=== PATIENT | male | born 1935 | race Caucasian/White ===

== ENCOUNTER → 2017-12-08 | Outpatient (CLI) | payer MEDICARE, BC ==
[2017-12-08 13:37] LABS: HEMATOCRIT 32.8 % (37.9-51.0); HEMOGLOBIN 11.1 g/dL (13.5-17.0); MEAN CORPUSCULAR HEMOGLOBIN 30.7 pg (27.0-33.4); MEAN CORPUSCULAR HGB CONC 33.8 g/dL (32.0-36.0); MEAN CORPUSCULAR VOLUME 91 fl (80-97); PLATELET COUNT 160 10^3/uL (150-450); RED BLOOD COUNT 3.61 10^6/uL (4.35-5.55); RED CELL DISTRIBUTION WIDTH 14.9 % (11.5-14.0)
[2017-12-08 13:59] LABS: ALANINE AMINOTRANSFERASE 73 U/L (21-72); ALBUMIN 3.5 g/dL (3.5-5.0); ALKALINE PHOSPHATASE 148 U/L (38-126); ANION GAP 11 (5-19); ASPARTATE AMINO TRANSFERASE 51 U/L (17-59); BILIRUBIN,DIRECT 0.3 mg/dL (0.0-0.4); BILIRUBIN,TOTAL 0.3 mg/dL (0.2-1.3); BLOOD UREA NITROGEN 37 mg/dL (7-20); CALCIUM 8.7 mg/dL (8.4-10.2); CARBON DIOXIDE 24 mmol/L (22-30); CHLORIDE 108 mmol/L (98-107); GLUCOSE 96 mg/dL (75-110); LIPASE 66.1 U/L (23-300); POTASSIUM 4.2 mmol/L (3.6-5.0); SODIUM 142.8 mmol/L (137-145); TOTAL PROTEIN 6.5 g/dL (6.3-8.2)
== END ==
LOC: OD 13:01
PROVIDERS: ATTEND Family Medicine
DX: I95.9 Hypotension, unspecified (principal); R11.0 Nausea
CPT/HCPCS: 36415; 80053; 83690; 85027

== ENCOUNTER 2018-10-24 10:48 | Emergency (ER) | payer MEDICARE, BC ==
--- NOTE | 2018-10-24 11:06 | ER Document Report ---
ED Medical Screen (RME) - General Chief Complaint: Rectal Bleeding Stated Complaint: RECTAL BLEEDING Time Seen by Provider: 10/24/18 11:04 Primary Care Provider: CRISTOFER MORELAND MD [Primary Care Provider] - Follow up as needed Notes: 83-year-old male patient with von Willebrand's disease, hepatocellular carcinoma. He does have biliary stents and the bleeding is occurring in that general region. He got his first infusion of Optiva recently. He self infuses another medication at home. His hemoglobin has been falling for the past 2 weeks. He needs a regular transfusions. He has also complained of nausea and vomiting. I have greeted and performed a rapid initial assessment of this patient. A comprehensive ED assessment and evaluation of the patient, analysis of test results and completion of the medical decision making process will be conducted by additional ED providers. TRAVEL OUTSIDE OF THE [place] IN LAST 30 DAYS: No - Related Data Allergies/Adverse Reactions: aspirin Allergy (Unknown, Verified 10/24/18 11:02) citric acid [From DDAVP] Allergy (Verified 10/24/18 11:02) desmopressin [From DDAVP] Allergy (Verified 10/24/18 11:02) levofloxacin [From Levaquin] Allergy (Verified 10/24/18 11:02) NSAIDS (Non-Steroidal Anti-Inflamma Allergy (Verified 10/24/18 11:02) penicillin G Allergy (Verified 10/24/18 11:02) sodium phosphate [From DDAVP] Allergy (Verified 10/24/18 11:02) Physical Exam - Vital signs Vitals: Temp Pulse Resp BP Pulse Ox 98.2 F 87 16 118/54 L 99 10/24/18 10:53 10/24/18 10:53 10/24/18 10:53 10/24/18 10:53 10/24/18 10:53 Course - Vital Signs Vital signs: Temp Pulse Resp BP Pulse Ox 98.2 F 87 16 118/54 L 99 10/24/18 10:53 10/24/18 10:53 10/24/18 10:53 10/24/18 10:53 10/24/18 10:53 Doctor's Discharge - Discharge Referrals: CRISTOFER MORELAND MD [Primary Care Provider] - Follow up as needed
[2018-10-24 12:04] LABS: ABSOLUTE BASOPHILS # (AUTO) 0.1 10^3/uL (0.0-0.2); ABSOLUTE EOSINOPHILS # (AUTO) 0.1 10^3/uL (0.0-0.6); ABSOLUTE LYMPHOCYTES (AUTO) 1.2 10^3/uL (0.5-4.7); ABSOLUTE MONOCYTES (AUTO) 1.1 10^3/uL (0.1-1.4); ABSOLUTE NEUT (AUTO) 7.3 10^3/uL (1.7-8.2); BASOPHILS % (AUTO) 0.8 % (0-2); EOSINOPHILS % (AUTO) 0.8 % (0-6); HEMATOCRIT 18.7 % (37.9-51.0); LYMPHOCYTES % (AUTO) 12.2 % (13-45); MEAN CORPUSCULAR HEMOGLOBIN 32.6 pg (27.0-33.4); MEAN CORPUSCULAR HGB CONC 33.3 g/dL (32.0-36.0); MEAN CORPUSCULAR VOLUME 98 fl (80-97); MONOCYTES % (AUTO) 11.4 % (3-13); RED BLOOD COUNT 1.91 10^6/uL (4.35-5.55); RED CELL DISTRIBUTION WIDTH 16.7 % (11.5-14.0); SEGMENTED NEUTROPHILS % (AUTO) 74.8 % (42-78); TOTAL CELLS COUNTED % (AUTO) 100 %; WHITE BLOOD COUNT 9.8 10^3/uL (4.0-10.5)
[2018-10-24 12:06] LABS: INTERNATIONAL RATION (INR) 0.89; PROTHROMBIN TIME 12.5 SEC (11.4-15.4)
[2018-10-24 12:10] LABS: HEMOGLOBIN 6.2 g/dL (13.5-17.0); PLATELET COUNT 39 10^3/uL (150-450)
[2018-10-24 12:18] LABS: APPEARANCE,URINE SLIGHTLY-CLOUDY; BILIRUBIN,URINE NEGATIVE (NEGATIVE); COLOR,URINE YELLOW; GLUCOSE, URINE NEGATIVE (NEGATIVE); KETONES,URINE NEGATIVE (NEGATIVE); LEUKOCYTE ESTERASE,URINE NEGATIVE (NEGATIVE); NITRITE,URINE NEGATIVE (NEGATIVE); PROTEIN,URINE 30 mg/dL (NEGATIVE); URINE SPECIFIC GRAVITY 1.015
[2018-10-24 12:55] LABS: ALANINE AMINOTRANSFERASE 148 U/L (21-72); ALBUMIN 2.4 g/dL (3.5-5.0); ALKALINE PHOSPHATASE 529 U/L (38-126); ASPARTATE AMINO TRANSFERASE 173 U/L (17-59); BILIRUBIN,DIRECT 0.9 mg/dL (0.0-0.4); BILIRUBIN,TOTAL 1.3 mg/dL (0.2-1.3); BLOOD UREA NITROGEN 49 mg/dL (7-20); CALCIUM 8.1 mg/dL (8.4-10.2); CARBON DIOXIDE 21 mmol/L (22-30); CHLORIDE 113 mmol/L (98-107); GLUCOSE 105 mg/dL (75-110); POTASSIUM 4.2 mmol/L (3.6-5.0); SODIUM 137.6 mmol/L (137-145); TOTAL PROTEIN 5.4 g/dL (6.3-8.2)
[2018-10-24 12:56] LABS: ANION GAP 4 (5-19)
[2018-10-24] MEDS ORDERED: NORMAL SALINE 250 ML IV PRN (14:12)
--- NOTE | 2018-10-24 14:13 | ER Document Report ---
ED GI Bleed / Rectal Pain - General Chief Complaint: Rectal Bleeding Stated Complaint: RECTAL BLEEDING Time Seen by Provider: 10/24/18 11:04 Primary Care Provider: CRISTOFER MORELAND MD [Primary Care Provider] - Follow up as needed Notes: 83-year-old male to the emergency department chief complaint of GI bleed and low blood counts. Patient has history of hepatitis C. 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 Had stents placed in the liver. Has von Willebrand's type II. Has chronic bleeding and chronic AV fistulas. Followed by local oncologist. Recently started on immunotherapy. Has received blood transfusion as recently as Friday where he had 2 units. Had endoscopy performed on . Blood counts now today are dropping. Sent here by his oncologist for transfusion. TRAVEL OUTSIDE OF THE [place] IN LAST 30 DAYS: No - HPI Patient complains to provider of: Bright red bld from rect., Dark/tarry stools Timing/Duration: Constant Quality of pain: No pain Severity of symptoms: Mild Pain Level: Denies Associated symptoms: Other - Weakness Exacerbated by: Movement - Related Data Allergies/Adverse Reactions: aspirin Allergy (Unknown, Verified 10/24/18 11:02) citric acid [From DDAVP] Allergy (Verified 10/24/18 11:02) desmopressin [From DDAVP] Allergy (Verified 10/24/18 11:02) levofloxacin [From Levaquin] Allergy (Verified 10/24/18 11:02) NSAIDS (Non-Steroidal Anti-Inflamma Allergy (Verified 10/24/18 11:02) penicillin G Allergy (Verified 10/24/18 11:02) sodium phosphate [From DDAVP] Allergy (Verified 10/24/18 11:02) Past Medical History - General Information source: Patient, Relative - Social History Smoking Status: Former Smoker Frequency of alcohol use: Occasional Drug Abuse: None Lives with: Family Family History: Other - History of von Willebrand's Patient has suicidal ideation: No Patient has homicidal ideation: No - Past Medical History Cardiac Medical History: Reports: Hx Hypertension Pulmonary Medical History: Reports: Hx COPD Renal/ Medical History: Denies: Hx Peritoneal Dialysis Malignancy Medical History: Reports Other - Liver cancer, von Willebrand's disease type II GI Medical History: Reports: Other - GI bleed, liver stents, hepatitis, hepatitis C Musculoskeletal Medical History: Reports Hx Arthritis Past Surgical History: Reports: Hx Abdominal Surgery - chemo tx for liver ca/ercp with stents, Hx Appendectomy Review of Systems - Review of Systems Notes: Constitutional: denies: Chills, Diaphoresis, Fever, +_Malaise, +Weakness EENT: denies: Eye discharge, Blurred vision, Tearing, Double vision, Nose congestion, Nose discharge, Throat swelling, Mouth pain Cardiovascular: denies: Palpitations, Heart racing, Orthopnea, Dyspnea, Chest pain Respiratory: denies: Cough, Hurts to breathe, Wheezing, Shortness of breath Gastrointestinal: denies: Abdominal pain, Diarrhea, Nausea, Vomiting, +Black stools, +bright red blood in stool Genitourinary: denies: Burning, Dysuria, Discharge, Frequency, Flank pain, Hematuria Musculoskeletal: denies: Joint pain, Joint swelling, Muscle pain, Muscle stiffness, back pain Hematologic/Lymphatic: denies: Anemia, Easy bleeding, Easy bruising, Blood c lots Neurological/Psychological: denies: Confusion, Dementia, Depression, Loss of consciousness Skin: No lesions, no masses, no skin breakdown, no abscesses Physical Exam - Vital signs Vitals: Temp Pulse Resp BP Pulse Ox 98.2 F 87 16 118/54 L 99 10/24/18 10:53 10/24/18 10:53 10/24/18 10:53 10/24/18 10:53 10/24/18 10:53 Interpretation: Normal - Notes Notes: Patient is quite pale - General General appearance: Appears well, Alert - HEENT Head: Normocephalic, Atraumatic Eyes: Normal Pupils: PERRL - Respiratory Respiratory status: No respiratory distress Chest status: Nontender Breath sounds: Normal Chest palpation: Normal - Cardiovascular Rhythm: Regular Heart sounds: Normal auscultation Murmur: No - Abdominal Inspection: Normal Distension: No distension Bowel sounds: Normal Tenderness: Nontender Organomegaly: No organomegaly - Back Back: Normal, Nontender - Extremities General upper extremity: Normal inspection, Nontender, Normal color, Normal ROM, Normal temperature General lower extremity: Normal inspection, Nontender, Normal color, Normal ROM, Normal temperature, Normal weight bearing. No: Bev's sign - Neurological Neuro grossly intact: Yes Cognition: Normal Orientation: AAOx4 Marlene Coma Scale Eye Opening: Spontaneous [place] Coma Scale Verbal: Oriented [place] Coma Scale Motor: Obeys Commands [place] Coma Scale Total: 15 Speech: Normal Motor strength normal: LUE, RUE, LLE, RLE Sensory: Normal - Psychological Associated symptoms: Normal affect, Normal mood - Skin Skin Temperature: Warm Skin Moisture: Dry Skin Color: Pale Course - Re-evaluation Re-evalutation: 10/24/18 16:33 At this time will proceed with transfusion based on requested patient's materials director. Will attempt to contact the patient's fire adjuster at [facility]. May need to be transferred but at this time; will defer to the specialist. 10/24/18 16:39 Laboratory 10/24/18 10/24/18 10/24/18 11:35 11:35 11:35 WBC 9.8 RBC 1.91 L Hgb 6.2 L Hct 18.7 L MCV 98 H MCH 32.6 MCHC 33.3 RDW 16.7 H Plt Count 39 L Seg Neutrophils % 74.8 Lymphocytes % 12.2 L Monocytes % 11.4 Eosinophils % 0.8 Basophils % 0.8 Absolute Neutrophils 7.3 Absolute Lymphocytes 1.2 Absolute Monocytes 1.1 Absolute Eosinophils 0.1 Absolute Basophils 0.1 PT 12.5 INR 0.89 Sodium Cancelled Potassium Cancelled Chloride Cancelled Carbon Dioxide Cancelled Anion Gap Cancelled BUN Cancelled Creatinine Cancelled Est GFR ( Amer) Cancelled Est GFR (Non-Af Amer) Cancelled Glucose Cancelled Calcium Cancelled Total Bilirubin Cancelled Direct Bilirubin Cancelled Neonat Total Bilirubin Cancelled Neonat Direct Bilirubin Cancelled Neonat Indirect Bili Cancelled AST Cancelled ALT Cancelled Alkaline Phosphatase Cancelled Total Protein Cancelled Albumin Cancelled Lipase Urine Color Urine Appearance Urine pH Ur Specific Willis Urine Protein Urine Glucose (UA) Urine Ketones Urine Blood Urine Nitrite Urine Bilirubin Urine Urobilinogen Ur Leukocyte Esterase Urine WBC (Auto) Urine RBC (Auto) Squamous Epi Cells Auto Urine Mucus (Auto) Urine Ascorbic Acid Blood Type Antibody Screen Crossmatch 10/24/18 10/24/18 10/24/18 11:35 11:35 12:23 WBC RBC Hgb Hct MCV MCH MCHC RDW Plt Count Seg Neutrophils % Lymphocytes % Monocytes % Eosinophils % Basophils % Absolute Neutrophils Absolute Lymphocytes Absolute Monocytes Absolute Eosinophils Absolute Basophils PT INR Sodium 137.6 Potassium 4.2 Chloride 113 H Carbon Dioxide 21 L Anion Gap 4 L BUN 49 H Creatinine 1.21 Est GFR ( Amer) > 60 Est GFR (Non-Af Amer) 58 L Glucose 105 Calcium 8.1 L Total Bilirubin 1.3 Direct Bilirubin 0.9 H Neonat Total Bilirubin Not Reportable Neonat Direct Bilirubin Not Reportable Neonat Indirect Bili Not Reportable AST 173 H ALT 148 H Alkaline Phosphatase 529 H Total Protein 5.4 L Albumin 2.4 L Lipase Urine Color YELLOW Urine Appearance SLIGHTLY-CLOUDY Urine pH 5.0 Ur Specific Willis 1.015 Urine Protein 30 H Urine Glucose (UA) NEGATIVE Urine Ketones NEGATIVE Urine Blood NEGATIVE Urine Nitrite NEGATIVE Urine Bilirubin NEGATIVE Urine Urobilinogen 2.0 H Ur Leukocyte Esterase NEGATIVE Urine WBC (Auto) 0 Urine RBC (Auto) 0 Squamous Epi Cells Auto <1 Urine Mucus (Auto) RARE Urine Ascorbic Acid NEGATIVE Blood Type A POSITIVE Antibody Screen NEGATIVE Crossmatch See Detail 10/24/18 12:23 WBC RBC Hgb Hct MCV MCH MCHC RDW Plt Count Seg Neutrophils % Lymphocytes % Monocytes % Eosinophils % Basophils % Absolute Neutrophils Absolute Lymphocytes Absolute Monocytes Absolute Eosinophils Absolute Basophils PT INR Sodium Potassium Chloride Carbon Dioxide Anion Gap BUN Creatinine Est GFR ( Amer) Est GFR (Non-Af Amer) Glucose Calcium Total Bilirubin Direct Bilirubin Neonat Total Bilirubin Neonat Direct Bilirubin Neonat Indirect Bili AST ALT Alkaline Phosphatase Total Protein Albumin Lipase 118.9 Urine Color Urine Appearance Urine pH Ur Specific Willis Urine Protein Urine Glucose (UA) Urine Ketones Urine Blood Urine Nitrite Urine Bilirubin Urine Urobilinogen Ur Leukocyte Esterase Urine WBC (Auto) Urine RBC (Auto) Squamous Epi Cells Auto Urine Mucus (Auto) Urine Ascorbic Acid Blood Type Antibody Screen Crossmatch 10/24/18 17:11 Blood transfusions were begun. Patient began to have a transfusion reaction. Not having anaphylaxis but blood was stopped. Patient was given diphenhydramine, dexamethasone and Pepcid after the reaction. Patient had been treated with Tylenol and Benadryl pretreatment. I discussed case at length with his materials director. At this time we think the patient would benefit from transfer. If his symptoms of the transfusion reaction improve the materials director recommends trying to transfuse him 1 more time. Patient is on humate. We will give him a dose of that here in the emergency department as well. I spoke to the fire adjuster on-call at [facility]. He will accept patient to the medicine team and will consult. At this time awaiting callback from the medicine team. 10/24/18 17:26 Dr. Mills at [facility]. Anticipate transport shortly. - Vital Signs Vital signs: Temp Pulse Resp BP Pulse Ox 97.6 F 90 19 125/67 96 10/24/18 16:57 10/24/18 16:57 10/24/18 18:16 10/24/18 18:16 10/24/18 18:16 - Laboratory Result Diagrams: 10/24/18 11:35 10/24/18 12:23 Laboratory results interpreted by me: 10/24/18 10/24/18 10/24/18 11:35 11:35 11:35 RBC 1.91 L Hgb 6.2 L Hct 18.7 L MCV 98 H RDW 16.7 H Plt Count 39 L Lymphocytes % 12.2 L Chloride Carbon Dioxide Anion Gap BUN Est GFR (Non-Af Amer) Calcium Direct Bilirubin AST ALT Alkaline Phosphatase Total Protein Albumin Urine Protein 30 H Urine Urobilinogen 2.0 H Crossmatch See Detail 10/24/18 12:23 RBC Hgb Hct MCV RDW Plt Count Lymphocytes % Chloride 113 H Carbon Dioxide 21 L Anion Gap 4 L BUN 49 H Est GFR (Non-Af Amer) 58 L Calcium 8.1 L Direct Bilirubin 0.9 H AST 173 H ALT 148 H Alkaline Phosphatase 529 H Total Protein 5.4 L Albumin 2.4 L Urine Protein Urine Urobilinogen Crossmatch - EKG Interpretation by Me EKG shows normal: Sinus rhythm, [place], QRS Complexes, ST-T Waves [place]/QRS: RBBB Critical Care Note - Critical Care Note Total time excluding time spent on procedures (mins): 60 Comments: GI bleed, consultation with multiple specialist, coordination of transfer of care, management of transfusion reaction. Discharge - Discharge Clinical Impression: Gastrointestinal bleeding, upper, Von Willebrands disease Transfusion reaction Qualifiers: Encounter type: initial encounter Qualified Code(s): T80.92XA - Unspecified transfusion reaction, initial encounter Condition: Fair Referrals: CRISTOFER MORELAND MD [Primary Care Provider] - Follow up as needed
[2018-10-24] MEDS ORDERED: DIPHENHYDRAMINE HCL 50 MG/ML VIAL IV ONE ×2 (14:56→17:09)
[2018-10-24] MEDS ORDERED: ACETAMINOPHEN 325 MG TABLET PO ONE ×2 (14:56→20:26)
[2018-10-24] MEDS ORDERED: FAMOTIDINE INJ/PF 20 MG/2 ML SDV IV ONE ×3 (15:12→17:09)
[2018-10-24] MEDS ORDERED: DEXAMETHASONE SOD PHOS INJ 10 MG/1 ML VIAL IV ONE (17:09)
[2018-10-24] MEDS ORDERED: PHARMACY COMMUNICATION ORDER MC NR (17:15)
[2018-10-24 18:51] LABS: APPEARANCE,URINE CLEAR; BILIRUBIN,URINE NEGATIVE (NEGATIVE); COLOR,URINE YELLOW; GLUCOSE, URINE NEGATIVE (NEGATIVE); KETONES,URINE NEGATIVE (NEGATIVE); LEUKOCYTE ESTERASE,URINE NEGATIVE (NEGATIVE); NITRITE,URINE NEGATIVE (NEGATIVE); PROTEIN,URINE 30 mg/dL (NEGATIVE); URINE SPECIFIC GRAVITY 1.013; UROBILINOGEN,URINE NEGATIVE mg/dL (<2.0)
--- NOTE | 2018-10-24 19:22 | EKG REPORT ---
SEVERITY:- ABNORMAL ECG - SINUS RHYTHM MULTIPLE ATRIAL PREMATURE COMPLEXES RIGHT BUNDLE BRANCH BLOCK : Confirmed by: Trudi Garvin MD 24-Oct-2018 19:21:40
[2018-10-24] MEDS ORDERED: FENTANYL CITRATE INJ/PF 100 MCG/2 ML AMPUL IV PRN (19:58)
[2018-10-24 22:15] VITALS: BP 130/60
== END 2018-10-24 22:20 | disposition short-term general hospital (02) ==
LOC: ER 10:48
DX: K62.5 Hemorrhage of anus and rectum (principal); R53.1 Weakness; D68.0 Von Willebrand disease; T80.92XA Unspecified transfusion reaction, initial encounter; X58.XXXA Exposure to other specified factors, initial encounter; I10 Essential (primary) hypertension; J44.9 Chronic obstructive pulmonary disease, unspecified; Z86.19 Personal history of other infectious and parasitic diseases; Z88.6 Allergy status to analgesic agent; Z88.0 Allergy status to penicillin; Z88.3 Allergy status to other anti-infective agents; Z85.05 Personal history of malignant neoplasm of liver
CPT/HCPCS: 93005; 96376; 99291; 96375; 96365; 86900; 86901; 36415; 36430; 86850; 83690; 85025; 85610; 81002; 80053; 81001; 86920; 93010; P9016; A9270; J1200; S0028; J1100